=== PATIENT | female | born 1985 | race Caucasian/White ===

== ENCOUNTER 2016-05-19 12:37 | Emergency (ER) | payer OTHER ==
[~2016-05-19] VITALS: Ht 154.9 cm; Wt 74.8 kg
[~2016-05-19 12:37] MED LIST: ACET50TA PO; FERR325T3 PO; IBUP80TA PO; NUPE10OI TOP; PRE-TAB3 PO; TYLE650T30 PO
[2016-05-19] MEDS ORDERED: NEXI20CA PO (12:47)
[2016-05-19] MEDS ORDERED: ZYRT10TA2 PO (12:47)
[2016-05-19] MEDS: NAPROXEN 250 MG TAB PO ONE (13:31)
--- NOTE | 2016-05-19 14:00 | REP ---
Left lower extremity Duplex Doppler venous ultrasound: Real time compression and duplex Doppler interrogation of the left lower extremity deep venous system is performed. The left common femoral, superficial femoral and popliteal veins are fully compressible with transducer pressure and demonstrate normal spontaneous and phasic flow, without evidence of deep venous thrombosis. Impression: No evidence of deep venous thrombosis of the left lower extremity femoral popliteal venous system. Signed by Zeke Moore MD 05/19/2016 01:51 P
[2016-05-19] MEDS ORDERED: MOBI7.5T10 PO (14:37)
[2016-05-19] MEDS ORDERED: ZANA4TAB PO (14:37)
[2016-05-19 14:50] VITALS: BP 151/91
== END 2016-05-19 14:51 | disposition home or self-care (01) ==
LOC: M ED 13:20
DX: M79.652 Pain in left thigh (principal); M79.662 Pain in left lower leg; R29.91 Unspecified symptoms and signs involving the musculoskeletal system; K21.9 Gastro-esophageal reflux disease without esophagitis; F17.210 Nicotine dependence, cigarettes, uncomplicated